=== PATIENT | male | born 1960 | race Caucasian/White ===

== ENCOUNTER → 2020-06-25 | Outpatient (CLI) | payer OTHER ==
[~2020-06-25] MED LIST: ACIPHEX 20 MG T20 MG PO
== END ==
LOC: SJCVCIMAG 07:42
PROVIDERS: ATTEND Internal Medicine
DX: I25.10 Atherosclerotic heart disease of native coronary artery without angina pectoris (principal); I10 Essential (primary) hypertension; E78.5 Hyperlipidemia, unspecified

== ENCOUNTER 2022-01-04 06:19 | Inpatient (IN) | payer BC ==
[~2022-01-04] VITALS: Ht 180.3 cm; Wt 97.2 kg
[2022-01-04 07:07] VITALS: BP 194/101
[2022-01-04] MEDS ORDERED: FAMOTIDINE40 MG PO (07:13)
[2022-01-04] MEDS ORDERED: CLARITIN10 M3 PO (07:22)
[2022-01-04] MEDS ORDERED: GEMFIBROZIL 60600 MG PO (07:22)
[2022-01-04] MEDS ORDERED: ASA81BEC PO (07:23)
[2022-01-04 07:35] LABS: BASOPHILS 0.8 % (0.0-2.0); EOSINOPHILS 3.7 % (0.0-3.0); HEMATOCRIT 43.7 % (42.0-52.0); HEMOGLOBIN 14.8 gm/dL (14.0-18.0); LYMPHOCYTES 32.8 % (24.0-44.0); MCHC 33.9 g/dL (28.0-37.0); MCV 82.5 fL (80.0-100.0); MONOCYTES 10.1 % (1.0-8.0); PLATELET COUNT 253 thou/uL (150-400); POLYS 52.6 % (36.0-66.0); RDW 13.3 % (10.5-14.5); WBC 5.8 thou/uL (4.0-11.0)
[2022-01-04 07:40] LABS: CALCIUM 8.6 mg/dL (8.5-10.1); CREATININE 0.9 mg/dL (0.7-1.3); POTASSIUM 3.9 mmol/L (3.5-5.1)
--- NOTE | 2022-01-04 12:58 | EKG ---
[address] [place] [address] ELECTROCARDIOGRAM REPORT Name: TONI GOLD Room #: 170-3 ADM IN M.R.#: [id number] Admission: 01/04/22 Attend Phys: Carlos Willoughby MD Discharge: Date of : 60 Report #: [id number] 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 : 1960 Requested By: Rashad Vallejo Order Number: [id number] MD: Ludin Dumont Measurements Intervals [place] Rate: 64 P: 66 OK: 154 QRS: 10 QRSD: 95 T: -7 QT: 406 QTc: 419 Interpretive Statements Sinus rhythm Borderline T abnormalities, inferior leads J Point elevation V1-2 Compared to ECG 10/07/2004 22:37:00 T-wave abnormality now present ST (T wave) deviation now present Myocardial infarct finding now present Poor R-wave progression no longer present Electronically Signed On 01-04-2022 12:58:31 SURG PHYSICIAN ASST by Ludin Dumont [email or web address] <ELECTRONICALLY SIGNED> By: Ludin Dumont MD, FAC 01/04/22 1258 6 Ludin Dumont MD, [facility] /EPI
--- NOTE | 2022-01-04 12:58 | EKG ---
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 Hoist Operator: hemanth : 1960 Requested By: Rashad Vallejo Order Number: [id number] MD: Ludin Dumont Measurements Intervals [place] Rate: 70 P: 58 MD: 156 QRS: 9 QRSD: 94 T: 18 QT: 406 QTc: 439 Interpretive Statements Sinus rhythm RSR' in V1 or V2, probably normal variant Minimal ST elevation, anterior leads Compared to ECG 10/07/2004 22:37:00 RSR' in V1 or V2 now present ST (T wave) deviation now present Poor R-wave progression no longer present Electronically Signed On 01-04-2022 12:58:11 [employer]ATION P[employer]OT by Ludin Dumont [email or web address] <ELECTRONICALLY SIGNED> By: Ludin Dumont MD, [facility] 01/04/22 1258 0627 0627 Ludin Dumont MD, [facility] /EPI
[2022-01-04 21:06] VITALS: BP 124/78
[2022-01-05] VITALS (10 sets, daily range): BP systolic 124–172; BP diastolic 52–95
--- NOTE | 2022-01-05 00:20 | NUR ---
REPORT TO RECEIVING NURSE.
[2022-01-05 05:54] LABS: CHOLESTEROL 144 mg/dL (<200); HDL CHOLESTEROL 33 mg/dL (>40); LDL CHOLESTEROL 57 mg/dL (<100); TC:HDL 4.4 Ratio (Not establshd); TRIGLYCERIDE 272 mg/dL (<150); VLDL 54 mg/dL (<40)
[2022-01-05 06:13] LABS: SERUM ASSESSMENT Clear
--- NOTE | 2022-01-05 06:46 | NUR ---
PT ARRIVED TO UNIT FROM ER [facility]OU[facility]. WAS NOT HAPPY TO BE AWAKED TO MOVE. PT SHOULD HAVE STRESS TEST TODAY. PT HAS BEEN NPO SINCE 0. A/0X4 AND UP AD YOGI. ADMISSION COMPLETED, CARE PLAN IN PLACE AND INTERVENTIONS UPDATED.
[2022-01-05 07:08] LABS: GLYCOHEMOGLOBIN (HGB A1C) 6.1 % (4.8-5.6)
--- NOTE | 2022-01-05 08:05 | EKG ---
[place] [address] [facility] [place] [address] ELECTROCARDIOGRAM REPORT Name: TONI GOLD Room #: 201-P ADM IN M.R.#: [id number] Admission: 01/04/22 Attend Phys: Carlos Willoughby MD Discharge: Date of : 60 Report #: [id number] [facility] ED Test Date: 2022-01-04 Test Time: 10:09:37 Pat Name: TONI GOLD Department: Room: 201 Gender: M Overhauler: mary grace : 1960 Requested By: Rashad Vallejo Order Number: [id number] MD: Chris Godoy Measurements Intervals [place] Rate: 70 P: 51 [place]: 160 QRS: -6 QRSD: 99 T: -3 QT: 396 QTc: 428 Interpretive Statements Sinus rhythm Minimal ST elevation, anterior leads Compared to ECG 01/04/2022 07:07:45 ST (T wave) deviation less pronounced Electronically Signed On 01-05-2022 8:05:25 WEB SITE SPECIALIST by Chris Godoy [email or web address] <ELECTRONICALLY SIGNED> By: Chris Godoy MD, [facility] 01/05/22 0805 1009 1009 Chris Godoy MD, [facility] /EPI
--- NOTE | 2022-01-05 11:35 | 2DMMODE ---
[facility] [place] [address] 2 D/M-MODE ECHOCARDIOGRAM Name: TONI GOLD Room #: 201-P ADM IN M.R.#: [id number] Admission: 01/04/22 Attend Phys: Carlos Willoughby MD Discharge: Date of : 60 Report #: [id number] THIS REPORT FOR: cc: Lucio Elaine MD, Steven E. MD Lammoglia, Francisco J. MD ~ APPROVED REPORT Study performed: 01/05/2022 09:38:13 EXAM: Comprehensive 2D, Doppler, and color-flow Echocardiogram Patient Location: Bedside Room #: 201 Status: routine BSA: 2.20 HR: 69 bpm BP: 160/85 mmHg Rhythm: NSR Other Information Study Quality: Technically Difficult Technically limited study due to inability to position patient. Indications Chest Pain Aortic Valve AoV Peak Guillermo.: 1.26 m/s AO Peak Gr.: 6.33 mmHg LVOT Max P.87 mmHg LVOT Max V: 0.98 m/s Mitral Valve E/A Ratio: 0.7 MV Decel. Time: 222.63 ms MV E Max Guillermo.: 0.50 m/s MV A Guillermo.: 0.69 m/s MV PHT: 64.56 ms IVRT: 147.64 ms Pulmonary Vein P Vein S: 0.30 m/s P Vein A: 0.20 m/s P Vein D: 0.20 m/s P Vein A Dur.: 129.2 msec P Vein S/D Ratio: 1.50 [facility] [address] [place] [address] 2 D/M-MODE ECHOCARDIOGRAM Name: ASIFTONI Room #: 201-P ADM IN M.R.#: [id number] Admission: 01/04/22 Attend Phys: Carlos Willoughby, Discharge: Date of : 60 Report #: [id number] Left Ventricle The left ventricle is normal size. There is normal left ventricular wall thickness. The left ventricular systolic function is normal. The left ventricular ejection fraction is within the normal range. LVEF is 55-60%. This study is not technically sufficient to allow evaluation of the LV diastolic function. Right Ventricle The right ventricle is normal size. The right ventricular systolic function is normal. Atria The left atrium size is normal. The right atrium size is normal. Aortic Valve The aortic valve is normal in structure. No aortic regurgitation is present. There is no aortic valvular stenosis. Mitral Valve The mitral valve is normal in structure. There is no mitral valve regurgitation noted. No evidence of mitral valve stenosis. Tricuspid Valve The tricuspid valve is normal in structure. There is no tricuspid valve regurgitation noted. Pulmonic Valve The pulmonary valve is normal in structure. There is no pulmonic valvular regurgitation. Great Vessels The aortic root is normal in size. IVC is not well visualized. Pericardium There is no pericardial effusion. <Conclusion> The left ventricle is normal size. There is normal left ventricular wall thickness. LVEF is 55-60%. The right ventricle is normal size. The left atrium size is normal. The aortic valve is normal in structure. [facility] [address] [place] [address] 2 D/M-MODE ECHOCARDIOGRAM Name: TONI GOLD Room #: 201-P ADM IN M.R.#: [id number] Admission: 01/04/22 Attend Phys: Carlos Willoughby, Discharge: Date of : 60 Report #: [id number] The mitral valve is normal in structure. The tricuspid valve is normal in structure. The pulmonary valve is normal in structure. The aortic root is normal in size. There is no pericardial effusion. <ELECTRONICALLY SIGNED> By: John Hackett MD 01/05/22 1135 1135 113 John Hackett MD /INF
--- NOTE | 2022-01-06 03:45 | NUR ---
TOOK OVER PATIENT AROUND 2315H.PATIENT IS LAERT AND ORIENTED X4.SINUS RYTHM ON THE MONITOR.NOT IN PAIN OR DISTRESS.TO CONTINOUSLY MONITOR.
[2022-01-06 04:25] VITALS: BP 146/93
[2022-01-06 04:56] VITALS: BP 131/74
[2022-01-06 07:10] VITALS: BP 132/86
[2022-01-06] MEDS ORDERED: BENICAR20 MG PO (09:26)
[2022-01-06] MEDS ORDERED: NORVASC5 MG PO (09:26)
[2022-01-06 15:00] VITALS: BP 112/73
--- NOTE | 2022-01-06 15:46 | NUR ---
PT DISCHARGED FROM THE UNIT AT 1535. PT'S NEW PRESCRIPTIONS WERE PICKED UP FROM HIS PHARMACY BY HIS , EDUCATION WAS PROVIDED ON HIS HOSPITAL STAY, DIAGNOSIS, NEW MEDICATIONS AND UPCOMING APPOINTMENTS. THE PT COMMUNICATED UNDERSTANDING OF THE INFORMATION PROVIDED TO HIM AND EXPRESSED MUCH GRATITUDE FOR THE CARE HE HAS RECEIVED WHILE HERE.
== END 2022-01-06 15:54 | disposition home or self-care (01) | DRG 305 ==
LOC: ER 06:19 → 2N 12:49 → EROBS 12:49 → 2N 01-05 00:23
PROVIDERS: Student in an Organized Health Care Education/Training Program; ADMIT Internal Medicine; ATTEND Internal Medicine
DX: I16.0 Hypertensive urgency (principal); I10 Essential (primary) hypertension; E78.5 Hyperlipidemia, unspecified; I25.10 Atherosclerotic heart disease of native coronary artery without angina pectoris; K21.9 Gastro-esophageal reflux disease without esophagitis; Z20.822 Contact with and (suspected) exposure to COVID-19; Z87.81 Personal history of (healed) traumatic fracture; Z79.899 Other long term (current) drug therapy
CPT/HCPCS: 10194